=== PATIENT | male | born 1980 | race Caucasian/White ===

== ENCOUNTER 2022-04-26 18:57 | Emergency (ER) | payer MEDICAID ==
[~2022-04-26] VITALS: Ht 175.3 cm; Wt 86.6 kg
[2022-04-26 20:06] VITALS: BP_SYST 119
[2022-04-26] MEDS ORDERED: SULF1TAB48 PO (20:45)
[2022-04-26] MEDS ORDERED: MUPI15CR12 TP (20:45)
--- NOTE | 2022-04-26 20:58 | NUR ---
PT MEDICATED IN TRIAGE, PER MD ORDER. SEE eMAR.
[2022-04-26] MEDS ORDERED: SULFAMETHOXAZOLE/TRIMETHOPR DS 1 TABLET PO ONE (21:00)
[2022-04-26 21:09] VITALS: BP_SYST 126
--- NOTE | 2022-04-26 21:11 | NUR ---
Patient given written and verbal discharge instructions and verbalizes understanding. ER MD discussed with patient the results and treatment provided. Patient in stable condition. ID arm band removed. IV catheter removed intact and dressing applied, no active bleeding. Rx of self given. Patient educated on pain management and to follow up with PMD. Pain Scale . Opportunity for questions provided and answered. Medication side effect fact sheet provided.
== END 2022-04-26 21:09 | disposition home or self-care (01) ==
LOC: SED 18:57
DX: L73.8 Other specified follicular disorders (principal); L01.00 Impetigo, unspecified; Z79.899 Other long term (current) drug therapy
CPT/HCPCS: 99283

== ENCOUNTER 2022-05-12 00:08 | Emergency (ER) | payer MEDICAID ==
[~2022-05-12] VITALS: Ht 175.3 cm; Wt 87.1 kg
[~2022-05-12 00:08] MED LIST: MUPI15CR12 TP; SULF1TAB48 PO
[2022-05-12 00:12] VITALS: BP_SYST 152
--- NOTE | 2022-05-12 00:15 | NUR ---
Patient triaged and placed in waiting room. VSS and patient appears in no acute distress at this time. Accompanied by SELF, awaiting available bed, and MD notified of need for MSE.
--- NOTE | 2022-05-12 00:22 | NUR ---
REPORT GIVEN TO KEVAN GENAO AND PUT PT IN RM 2
[2022-05-12 00:42] VITALS: BP_SYST 132
--- NOTE | 2022-05-12 00:46 | NUR ---
MD AT BEDSIDE FOR ASSESSMENT AND DC PLANS
--- NOTE | 2022-05-12 00:46 | NUR ---
Patient given written and verbal discharge instructions and verbalizes understanding. ER MD discussed with patient the results and treatment provided. Patient in stable condition. ID arm band removed. . Patient educated on pain management and to follow up with PMD. Pain Scale . Opportunity for questions provided and answered. Medication side effect fact sheet provided.
== END 2022-05-12 00:42 | disposition home or self-care (01) ==
LOC: SED 00:08
DX: K14.0 Glossitis (principal); Z79.899 Other long term (current) drug therapy
CPT/HCPCS: 99281